=== PATIENT | female | born 1950 | race Caucasian/White ===

== ENCOUNTER 2022-02-11 13:28 | Emergency (ER) | payer MEDICARE ==
[2022-02-11] MEDS ORDERED: Sodium Chloride 0.9% 10 ML Syringe FLUSH PRN (13:36)
[2022-02-11] MEDS ORDERED: Sodium Chloride 0.9% 1,000 ML IV STA (13:51)
[2022-02-11 14:43] LABS: ESTIMATED GFR 40 mL/min (>60)
== END 2022-02-11 15:30 | disposition home or self-care (01) ==
LOC: JD.ED 13:28
DX: R55 Syncope and collapse (principal); E78.00 Pure hypercholesterolemia, unspecified; I10 Essential (primary) hypertension; E11.9 Type 2 diabetes mellitus without complications; Z79.899 Other long term (current) drug therapy; Z88.2 Allergy status to sulfonamides; Z79.82 Long term (current) use of aspirin; Z79.4 Long term (current) use of insulin
CPT/HCPCS: 36415; 80053; 83735; 85025; 93005; 99284; J3490